=== PATIENT | female | born 1940 | race Caucasian/White ===

== ENCOUNTER 2023-11-30 12:16 | Emergency (ER) | payer MEDICARE ==
[~2023-11-30] VITALS: Ht 160 cm; Wt 55.9 kg
[2023-11-30 12:26] VITALS: BP 135/91; PULSE 88; RESP 20; TEMP 98.9; O2SAT 96
[2023-11-30] MEDS: TraMADol HCL 50 MG TABLET PO ONE (13:09)
[2023-11-30] MEDS: FLUORESCEIN SODIUM 1 MG STRIP OS ONE (13:09)
[2023-11-30] MEDS ORDERED: TRAM50TA5 PO (13:23)
[2023-11-30] MEDS ORDERED: VALA500T PO (13:23)
== END 2023-11-30 13:56 | disposition home or self-care (01) ==
LOC: EMS 12:16
DX: B02.9 Zoster without complications (principal)
CPT/HCPCS: 99283